=== PATIENT | female | born 1990 | race Two or more races ===

== ENCOUNTER 2024-06-03 16:46 | Emergency (ER) | payer OTHER ==
[~2024-06-03] VITALS: Ht 157.5 cm; Wt 63.5 kg
[2024-06-03 17:31] VITALS: BP 125/84; O2SAT 99
[2024-06-03] MEDS ORDERED: HYDROCODONE/CHLORPHEN P-STIREX 5 ML ML PO STA (18:12)
[2024-06-03 18:46] LABS: HEMATOCRIT 37.3 % (36.0-45.00); HEMOGLOBIN 12.7 g/dL (12.0-15.00); MEAN CELL VOLUME 86.8 fL (80.00-100.00); MEAN CORPUSCULAR HEMOGLOBIN 29.6 pg (27.00-32.0); MEAN CORPUSCULAR HGB CONC 34.1 g/dl (32.0-36.0); PLATELET COUNT 285 K/uL (150-450); RED CELL DISTRIBUTION WIDTH 12.7 % (11.5-14.5)
== END 2024-06-03 19:49 | disposition home or self-care (01) ==
LOC: ER 16:49
DX: J06.9 Acute upper respiratory infection, unspecified (principal); Z20.822 Contact with and (suspected) exposure to COVID-19

== ENCOUNTER 2024-09-07 09:05 | Day surgery (SDC) | payer OTHER ==
[2024-09-03 12:31] LABS: URINE APPEARANCE Cloudy; URINE BILIRRUBIN Negative (NEGATIVE); URINE BLOOD Moderate; URINE COLOR Yellow; URINE GLUCOSE Negative (NEGATIVE); URINE KETONE Negative (NEGATIVE); URINE LEUKOCYTE Negative; URINE NITRATE Negative; URINE PROTEIN Trace (NEGATIVE)
[2024-09-03 12:32] LABS: URINE BACTERIA 5220.3 uL (0.0-1933); URINE EPITHELIAL CELLS 36.2 uL (0.0-38.8); URINE RBC 8.3 uL (0.0-20.8); URINE WBC 65.7 uL (0.0-23.2)
[2024-09-03 12:34] LABS: HEMATOCRIT 37.3 % (36.0-45.00); HEMOGLOBIN 12.6 g/dL (12.0-15.00); MEAN CELL VOLUME 86.5 fL (80.00-100.00); MEAN CORPUSCULAR HEMOGLOBIN 29.1 pg (27.00-32.0); MEAN CORPUSCULAR HGB CONC 33.6 g/dl (32.0-36.0); PLATELET COUNT 301 K/uL (150-450); RED BLOOD COUNT 4.32 M/uL (4.00-6.00); RED CELL DISTRIBUTION WIDTH 13.1 % (11.5-14.5)
[2024-09-03 12:58] LABS: URINE CAST 0.73 uL (0.0-1.40)
[2024-09-03 13:22] LABS: INR 0.98; PARTIAL THROMBOPLASTIN TIME 25.8 SECONDS (22.0-34.0); PROTHROMBIN TIME 10.7 SECONDS (9.0-11.5)
[2024-09-03 13:23] LABS: ALBUMIN 3.9 gm/dL (3.4-5.0); BILIRUBIN TOTAL 0.44 mg/dL (0.3-1.2); CREATININE SERUM 0.68 mg/dL (0.55-1.02); GFR 98.46; GLOBULINA 3.6 G/DL (2.4-3.5); POTASSIUM 3.62 mEq/L (3.5-5.1); TOTAL PROTEIN 7.5 gm/dL (6.4-8.2)
[2024-09-07] MEDS ORDERED: POVIDONE-IODINE 118 ML BOTT TOP ONE (16:50)
[2024-09-07] MEDS ORDERED: OXYTOCIN 10 UNITS/ML VIAL ONE (17:07)
[2024-09-07] MEDS ORDERED: MORPHINE SULFATE 4 MG/ML VIAL IV ONE (17:55)
== END 2024-09-07 19:15 | disposition home or self-care (01) ==
LOC: CIR.AMB 09:05
PROVIDERS: ATTEND Specialist
DX: O02.1 Missed abortion (principal); G43.909 Migraine, unspecified, not intractable, without status migrainosus

== ENCOUNTER 2025-05-29 23:37 | Emergency (ER) | payer OTHER ==
[~2025-05-29] VITALS: Ht 157.5 cm; Wt 63.5 kg
[2025-05-30] MEDS ORDERED: METHYLPREDNISOLONE SOD SUCC 125 MG VIAL IM STA (00:24)
[2025-05-30] MEDS ORDERED: CEFTRIAXONE SODIUM 1,000 MG VIAL IM STA (00:25)
[2025-05-30] MEDS ORDERED: ALBUTEROL SULFATE 3 ML/2.5 MG AMPUL.NEB IH STA (00:25)
[2025-05-30 04:13] LABS: BASO % 0.1 % (0.1-1.2); EOS # 0.00 (0.04-0.54); EOS % 0.0 % (0.7-7.0); LYMPH # 1.71 (1.18-3.74); LYMPH % 22.8 % (19.3-53.1); MEAN PLATELET VOLUME 9.60 fl (9.4-12.4); MONO # 0.74 (0.24-0.82); MONO % 9.9 % (4.7-12.5); NEUT # 5.03 (1.56-6.13); NEUT % 66.9 % (34.0-71.1); RED CELL DISTRIBUTION WIDTH 12.0 % (11.6-14.4)
[2025-05-30 04:32] LABS: BUN CREA RATIO 10.0 (7.0-25.0); CREATININE SERUM 0.84 mg/dL (0.55-1.02); GFR 77.16; GLUCOSE FASTING 120.0 mg/dL (65-100); OSMOLALITY SERUM 277.0 MOSM/KG (275-295)
[2025-05-30 05:33] LABS: URINE APPEARANCE Clear; URINE BILIRRUBIN Small (NEGATIVE); URINE BLOOD Negative; URINE COLOR Dark Yellow; URINE GLUCOSE Negative (NEGATIVE); URINE KETONE Trace (NEGATIVE); URINE LEUKOCYTE Small; URINE NITRATE Negative; URINE PROTEIN 30 (NEGATIVE); URINE UROBILINOGEN 1.0 E.U./dl
[2025-05-30 05:55] LABS: COVID-19 AG NEGATIVE (NEGATIVE)
[2025-05-30 06:26] LABS: TYPE CELLS SQUAMOUS; URINE EPITHELIAL CELLS 60.4 uL (0.0-38.8); URINE RBC 31.1 uL (0.0-20.8); URINE WBC 52.1 uL (0.0-23.2)
[2025-05-30 06:27] LABS: URINE CAST 0.84 uL (0.0-1.40)
== END 2025-05-30 06:24 | disposition home or self-care (01) ==
LOC: ER 23:37
PROVIDERS: General Practice
DX: J40 Bronchitis, not specified as acute or chronic (principal); Z20.822 Contact with and (suspected) exposure to COVID-19